=== PATIENT | female | born 1970 ===

== ENCOUNTER 2018-10-13 00:32 | Outpatient (CLI) | payer MEDICARE, MEDICAID | END 2018-10-13 23:59 | disposition home or self-care (01) | LOC: DIABETIC 00:32 | PROVIDERS: ATTEND Surgery | DX: E66.01 Morbid (severe) obesity due to excess calories (principal); F50.89 Other specified eating disorder; Z71.3 Dietary counseling and surveillance; Z68.41 Body mass index [BMI] 40.0-44.9, adult; G47.30 Sleep apnea, unspecified; K21.9 Gastro-esophageal reflux disease without esophagitis | CPT/HCPCS: 97803 ==

== ENCOUNTER 2018-11-04 02:20 | Outpatient (CLI) | payer MEDICARE, MEDICAID | END 2018-11-04 23:59 | disposition home or self-care (01) | LOC: DIABETIC 02:20 | PROVIDERS: ATTEND Surgery | DX: E66.01 Morbid (severe) obesity due to excess calories (principal); Z71.3 Dietary counseling and surveillance; Z68.43 Body mass index [BMI] 50.0-59.9, adult; K21.9 Gastro-esophageal reflux disease without esophagitis; G47.30 Sleep apnea, unspecified | CPT/HCPCS: G0108 ==

== ENCOUNTER 2018-12-30 04:49 | Outpatient (CLI) | payer MEDICARE, MEDICAID | END 2018-12-30 23:59 | disposition home or self-care (01) | LOC: DIABETIC 04:49 | PROVIDERS: ATTEND Surgery | DX: E66.01 Morbid (severe) obesity due to excess calories (principal); K21.9 Gastro-esophageal reflux disease without esophagitis; G47.30 Sleep apnea, unspecified; E11.9 Type 2 diabetes mellitus without complications | CPT/HCPCS: 97803 ==